=== PATIENT | female | born 1985 | race Two or more races ===

== ENCOUNTER 2017-12-25 13:02 | Emergency (ER) | payer BC ==
[~2017-12-25] VITALS: Ht 172.7 cm; Wt 74.8 kg
[2017-12-25 13:10] VITALS: BP 110/68
== END 2017-12-25 13:38 | disposition home or self-care (01) ==
LOC: ER 13:06
DX: S70.371A Other superficial bite of right thigh, initial encounter (principal); W54.0XXA Bitten by dog, initial encounter; Y93.89 Activity, other specified; Y92.89 Other specified places as the place of occurrence of the external cause; Y99.8 Other external cause status
CPT/HCPCS: A4606; Z7502; Z7610